=== PATIENT | female | born 1955 | race Caucasian/White ===

== ENCOUNTER 2024-03-19 11:00 | Outpatient (AMB) | payer MEDICARE, SELFPAY ==
--- NOTE | 2024-03-19 11:06 | MHC.OFFVIS ---
Vital Signs 03/19/24 11:07 Height 5 ft 5 in Weight 208 lb BMI 34.6 BP 135/64 Blood Pressure Location Lt brachial Position Sitting Respiration 15 Pulse 81 Pulse Source Pulse Oximeter Pulse Oximetry (%) 97 Oxygen Delivery Method Room Air Intake Visit Reasons: Sacro-iliac pain Allergies naproxen Allergy (Severe, Verified 03/19/24 11:10) Anaphylaxis dimethyl fumarate Adverse Reaction (Severe, Verified 03/19/24 11:10) hives glatiramer (copolymer 1) [From Copaxone] Adverse Reaction (Severe, Verified 03/19/24 11:10) heart palpitations Penicillins Adverse Reaction (Severe, Verified 03/19/24 11:10) Anaphylaxis Sulfa (Sulfonamide Antibiotics) Adverse Reaction (Severe, Verified 03/19/24 11:10) hives, lung pain Medication List - Last Reconciled 03/19/24 by Suzette Webb LPN baclofen 10 mg PO BID calcium carbonate 260 mg PO DAILY cholecalciferol (vitamin D3) 50 mcg PO DAILY furosemide 20 mg PO DAILY lorazepam (Ativan) 1 mg PO DAILY PRN magnesium 250 mg PO DAILY mecobalamin (vitamin B12) 1,000 mcg PO DAILY multivitamin 1 tab PO DAILY pregabalin 50 mg PO TID HPI HPI Sacro-iliac pain: Details: 68-year-old female who presents today to the office for a sacroiliac joint pain. She is presenting with a two-year history of low back pain that is present in the lower back region, bilateral groins, bilateral posterior thighs, and bilateral calves. It is described as an aching sensation in her lower back associated with numbness in pins and needles in her thighs and calves. She also has aching in her feet. The pain is described as 5-7/10 in intensity on average, especially when it is worse with movements or walking. It is less bothersome when she is sitting, although she does have numbness pins and needles when she is seated. She has been unable to sleep normally. She is a side sleeper and sleeps on her left side. She also underwent an MRI of the lumbar spine, which showed trace L4-5 anterolisthesis and an enhancing Schmorl?s node at the inferior L2 endplate. Otherwise, she had mild to moderate degenerate changes throughout the lumbar spine. 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 In November, she had an SI joint injection with Dr. Pollack that provided 100% relief initially then she had a decrease in the level of relief, but she was able to travel to [place] and increase her tolerance for activities. She has a second SI joint steroid injection scheduled in March with Dr. Pollack. She has also tried bracing and exercises, which unfortunately have made her pain worse. She is currently taking gabapentin 3 times a day, Magnesium, Baclofen, and Ativan P.R.N. Review of Systems Const All systems reviewed & are unremarkable except as noted in HPI and below Physical Exam Vital Signs: Last Vital Signs Pulse 81 03/19/24 11:07 Resp 15 03/19/24 11:07 BP 135/64 03/19/24 11:07 Pulse Ox 97 03/19/24 11:07 Oxygen Delivery Method Room Air 03/19/24 11:07 BMI result Body Mass Index 34.6 General: Appears afebrile. Alert and oriented. Mood and affect appropriate. Follows and participates in conversation appropriately. Respiratory effort is unlabored. Able to transition from sit to stand unassisted. Ambulates with bilaterally normal heel strike and toe off. Results Reviewed Results Reviewed: She had an MRI of the lumbar spine, which showed trace L4-5 anterolisthesis and an enhancing Schmorl?s node at the inferior L2 endplate. Otherwise, she had mild to moderate degenerate changes throughout the lumbar spine. 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 02/17/24: MRI of the lumbar spine. Assessment & Plan Assessment & Plan (1) Lumbar radicular pain: Code(s): M54.16 - Radiculopathy, lumbar region Category: Medical (2) Lumbar spondylosis: Code(s): M47.816 - Spondylosis without myelopathy or radiculopathy, lumbar region Category: Medical (3) Low back pain: Code(s): M54.50 - Low back pain, unspecified Category: Medical (4) Sacroiliac dysfunction: Code(s): M53.3 - Sacrococcygeal disorders, not elsewhere classified Category: Medical Plan For her axial low back pain not responsive to sacroiliac joint injection and interventions, we discussed both lumbar facet injections as well as temporary peripheral nerve stimulator as a possible treatment option given her risk profile for osteoporosis and abnormal bone lesions. I think it would be best to minimize cortico-steroid intake. So, we will schedule her for a right temporary L3 medial branch nerve stimulator placement for her axial low back pain, followed by the left side two weeks later. Discussed the risks and benefits of the procedure with the patient in detail. All questions were answered. The patient is on board with the plan. Informed the patient that insurance approval is required. We will file a PA for approval and keep her updated.? For her radicular pain in her legs, if this does not improve with nerve stimulation therapy, we can consider a low-dose epidural steroid injection at the L4-5 level. She has a second SI joint steroid injection scheduled in March with Dr. Pollack.? For her abnormal iliac bone lesions, I recommended that she follow up with either an financial compliance examiner or orthopedic oncologist to get a better sense of the diagnosis and a plan of care for an unspecified T2 hyperintense bone lesion on the recent MRI scan.? I also recommended trying turmeric and dayna supplements, magnesium, zinc, and ALA for their anti-inflammatory properties. She can also try using Tylenol, lidocaine patches, or Salonpas patches.? Justification for interventional therapy: ? Patient with average pain > 6/10 ? Patient has exhausted conservative therapy. ? Patient unable to tolerate physical therapy due to pain. . Patient has a good understanding of their pain condition and has appropriate mental and social support. Scribed for Dr. Milian by Paul Van, medical cash poster, on 03/19/2024. I, Dr. Milian, have personally reviewed and agree with the information entered by the scribe. Coding Level of Care Code New Pt Level 4 (68654) Diagnoses Lumbar radicular pain M54.16 Lumbar spondylosis M47.816 Low back pain M54.50 Sacroiliac dysfunction M53.3
[2024-03-19 11:07] VITALS: BP 135/64; PULSE 81; RESP 15; O2SAT 97; BMI 34.6
== END 2024-03-19 12:04 | disposition home or self-care (01) ==
PROVIDERS: PCP Family Medicine; Visit Provider Internal Medicine
DX: M54.16 Radiculopathy, lumbar region (principal); M47.816 Spondylosis without myelopathy or radiculopathy, lumbar region; M54.50 Low back pain, unspecified; M53.3 Sacrococcygeal disorders, not elsewhere classified
CPT/HCPCS: 99204

== ENCOUNTER → 2024-03-19 11:00 | Outpatient (BNVA) | payer MEDICARE, SELFPAY | PROVIDERS: PCP Family Medicine; Visit Provider Internal Medicine | DX: M54.16 Radiculopathy, lumbar region (principal); M47.816 Spondylosis without myelopathy or radiculopathy, lumbar region; M54.50 Low back pain, unspecified; M53.3 Sacrococcygeal disorders, not elsewhere classified | CPT/HCPCS: 99202 ==

== ENCOUNTER 2024-04-01 06:29 | Outpatient (REF) | payer MEDICARE, SELFPAY ==
--- NOTE | ~2024-04-01 | FL_ITS ---
EXAMINATION: FLUORO GUIDANCE IN TREATMENT ROOM CLINICAL INFORMATION: Spondylosis without myelopathy or radiculopathy, lumbar region. COMPARISON: None available. TECHNIQUE: Fluoroscopy supervised by: Dr. Mark Milian. Fluoroscopy time: 0.1 minutes. Cumulative Dose: 3.59 mGy. DAP: 0.0266 mGy-m2 (milligray-meter squared). Images: 3. FINDINGS: A transforaminal needle and microlead are seen overlying a lower vertebral body on the right. Exact level cannot be ascertained from the included spot films. FL/FL guidance in treatment room IMPRESSION: Fluoroscopy during procedure. Please see procedure report for additional information. Electronically signed by: Frank Dutta MD 05/06/2024 08:02 AM RIKKI
== END 2024-04-01 06:30 | disposition home or self-care (01) ==
LOC: CF 06:29
PROVIDERS: Visit Provider Internal Medicine
DX: M47.816 Spondylosis without myelopathy or radiculopathy, lumbar region (principal); M53.3 Sacrococcygeal disorders, not elsewhere classified
CPT/HCPCS: 64555; C1778; J2003

== ENCOUNTER 2024-04-01 09:40 | Outpatient (AMB) | payer MEDICARE, SELFPAY ==
[2024-04-01 09:56] VITALS: BP 133/59; PULSE 82; O2SAT 96
--- NOTE | 2024-04-01 09:56 | MHC.OFFVIS ---
Vital Signs 04/01/24 09:56 04/01/24 10:53 BP 133/59 L 147/68 H Blood Pressure Location Lt brachial Lt brachial Position Sitting Sitting Pulse 82 73 Pulse Source Pulse Oximeter Pulse Oximeter Pulse Oximetry (%) 96 97 Oxygen Delivery Method Room Air Room Air Intake Visit Reasons: Right L3 Sprint Allergies naproxen Allergy (Severe, Verified 03/19/24 11:10) Anaphylaxis dimethyl fumarate Adverse Reaction (Severe, Verified 03/19/24 11:10) hives glatiramer (copolymer 1) [From Copaxone] Adverse Reaction (Severe, Verified 03/19/24 11:10) heart palpitations Penicillins Adverse Reaction (Severe, Verified 03/19/24 11:10) Anaphylaxis Sulfa (Sulfonamide Antibiotics) Adverse Reaction (Severe, Verified 03/19/24 11:10) hives, lung pain HPI HPI Right L3 Sprint: Details: Patient presents for scheduled procedure. Denies any recent cough, cold, infection, fever or other significant changes in medical history since last office visit. Physical Exam Vital Signs: Last Vital Signs Pulse 73 04/01/24 10:53 BP 147/68 H 04/01/24 10:53 Pulse Ox 97 04/01/24 10:53 Oxygen Delivery Method Room Air 04/01/24 10:53 Office Procedures Details: Lumbar Medial Branch Nerve Stimulation Lead Placement, SPR (Sprint) System, Right L3 ? After the risks, benefits and alternatives were discussed with the patient and informed consent was obtained, patient was placed in the prone position and padded to foster comfort. The skin overlying the lumbosacral spine was prepped and draped in sterile fashion. Fluoroscopy was used to identify the spinous process and lamina in the center of the patient?s region of pain. After identifying and marking the intended target along the course of the medial branch nerve, the skin around the planned entry point and the subcutaneous tissues were injected with lidocaine 1%. An introducer needle and stimulating probe were assembled, inserted and advanced along the intended course of the medial branch nerve as it traverses the lamina medial and inferior to the zygapophyseal joint, taking care to maintain the proper depth of insertion as the introducer is advanced under fluoroscopic guidance. The introducer needle was delivered to a location in proximity to the nerve. Multiple stimulation parameters were used to deliver stimulation to the target medial branch nerve in concert with stimulating at multiple positions around the nerve. Nerve target acquisition was confirmed noting generation of paresthesias in the paravertebral regions corresponding to the level being stimulated. Various electrical parameter combinations were tested, and the lead location was adjusted (physically relocated) until the patient indicated paresthesia/muscle tension overlapping the distribution of the patient?s typical region of pain. The stimulating probe was removed from the introducer and a percutaneous lead was guided through the needle and delivered to a location in similar proximity to the nerve. Final location was verified with electrical stimulation and documented with fluoroscopy. The introducer needle was removed, and the exposed end of the percutaneous lead was attached to an external stimulator unit. Various electrical parameter combinations were again tested until the patient indicated paresthesia or muscle tension overlapping the distribution of the patient?s typical region of pain. After confirming that lead impedance was in the normal range, the external unit was detached, the needle was removed, and the lead was anchored at the skin. The lead was threaded into the connector block and electrical continuity and desired patient response was confirmed. The connector block was attached to the external stimulator unit. The site was covered with a sterile occlusive dressing. The patient was observed for stability of vital signs and comfort. Sprint PNS Device: Sprint PNS Device [id number] Percutaneous Peripheral Neuroelectrode Procedure: 36809 - Percutaneous Peripheral Neuroelectrode Procedure code (CPT) selection complete Office Meds lidocaine HCl 10 mg/mL (1 %) injection solution Performing Provider: Candida Clark APRN, CNP Performing Location: [facility] Administered by: Suzette Webb LPN on 04/01/24 10:38 Dose Route Admin Location Dispensed Lot Number Expiration Date FORMERLY NAMED [facility] Multi Needle Machine Operator 5 mL subcut 5 mL Assessment & Plan Assessment & Plan (1) Sacroiliac dysfunction: Code(s): M53.3 - Sacrococcygeal disorders, not elsewhere classified Category: Medical Plan Patient is status post temporary right L3 medial branch nerve stimulator placement. Patient tolerated procedure well and was discharged home in stable condition with discharge instructions. All questions were answered. We will follow-up via telephone or in clinic to assess response to therapy. A follow-up appointment was made during today's visit. Orders: Orders FL guidance in treatment room Today M47.816 - Spondylosis without myelopathy or radiculopathy, lumbar region AMB Sprint PNS Today M47.816 - Spondylosis without myelopathy or radiculopathy, lumbar region Coding Level of Care Code Procedure Only Diagnoses Sacroiliac dysfunction M53.3 CPT Codes Sprint PNS - Sprint PNS Device: Sprint PNS Device ([id number]) Sprint PNS - SPRINT: 37376 - Percutaneous Peripheral Neuroelectrode ([id number]) Implantable Device Implantable Device Implantable Devices Qty Multi Needle Machine Operator Implant Date Expiration Date Analgesic PENS system 1 [employer] 04/01/24 03/10/25
[2024-04-01 10:53] VITALS: BP 147/68; PULSE 73; O2SAT 97
== END 2024-04-01 11:29 | disposition home or self-care (01) ==
PROVIDERS: PCP Family Medicine; Visit Provider Internal Medicine
DX: M53.3 Sacrococcygeal disorders, not elsewhere classified (principal)
CPT/HCPCS: 64555

== ENCOUNTER → 2024-04-05 12:12 | Outpatient (BNVA) | payer MEDICARE, SELFPAY | PROVIDERS: PCP Family Medicine; Visit Provider Internal Medicine | DX: M47.816 Spondylosis without myelopathy or radiculopathy, lumbar region (principal); M54.50 Low back pain, unspecified; M53.3 Sacrococcygeal disorders, not elsewhere classified | CPT/HCPCS: 99212 ==

== ENCOUNTER 2024-04-05 12:31 | Outpatient (AMB) | payer MEDICARE, SELFPAY ==
--- NOTE | 2024-04-05 12:43 | MHC.OFFVIS ---
Vital Signs 04/05/24 12:48 Height 5 ft 5 in Weight 200 lb BMI 33.3 BP 128/64 Blood Pressure Location Lt brachial Position Sitting Pulse 72 Pulse Source Pulse Oximeter Pulse Oximetry (%) 98 Oxygen Delivery Method Room Air Intake Visit Reasons: s/p right L3 Sprint Intake Note: Pain today 2 Tool Room Lathe Operator Required: No Accompanied by: Self / Same As Patient Allergies naproxen Allergy (Severe, Verified 04/05/24 12:48) Anaphylaxis dimethyl fumarate Adverse Reaction (Severe, Verified 04/05/24 12:48) hives glatiramer (copolymer 1) [From Copaxone] Adverse Reaction (Severe, Verified 04/05/24 12:48) heart palpitations Penicillins Adverse Reaction (Severe, Verified 04/05/24 12:48) Anaphylaxis Sulfa (Sulfonamide Antibiotics) Adverse Reaction (Severe, Verified 04/05/24 12:48) hives, lung pain HPI Comments Details: Patient presents today 1 week status post Right L3 Sprint PNS lead placement on 04/01/[address] Milian. Patient reports ongoing 80% pain relief since procedure at stimulation 56 with notable improvement in her daily activities and functioning, sleep and social activities. She is considering to restart walking club. Denies any recent cough, cold, infection, fever or other significant changes in medical history since last office visit. The dressing was removed today. Lead insertion site look clean, dry, intact, no redness, no swelling, no pathological discharge. Area was cleansed with Chloraprep, applied Bacitracin and covered with Sprint Tegaderm film and gauze dressing. Past Procedures: 04/01/24: Right L3 Sprint PNS-80% ongoing pain relief at 56 PRIOR 03/19/24: 68-year-old female who presents today to the office for a sacroiliac joint pain. She is presenting with a two-year history of low back pain that is present in the lower back region, bilateral groins, bilateral posterior thighs, and bilateral calves. It is described as an aching sensation in her lower back associated with numbness in pins and needles in her thighs and calves. She also has aching in her feet. The pain is described as 5-7/10 in intensity on average, especially when it is worse with movements or walking. It is less bothersome when she is sitting, although she does have numbness pins and needles when she is seated. She has been unable to sleep normally. She is a side sleeper and sleeps on her left side. She also underwent an MRI of the lumbar spine, which showed trace L4-5 anterolisthesis and an enhancing Schmorl?s node at the inferior L2 endplate. Otherwise, she had mild to moderate degenerate changes throughout the lumbar spine. 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 In November, she had an SI joint injection with Dr. Pollack that provided 100% relief initially then she had a decrease in the level of relief, but she was able to travel to [place] and increase her tolerance for activities. She has a second SI joint steroid injection scheduled in March with Dr. Pollack. She has also tried bracing and exercises, which unfortunately have made her pain worse. She is currently taking gabapentin 3 times a day, Magnesium, Baclofen, and Ativan P.R.N. Review of Systems Const All systems reviewed & are unremarkable except as noted in HPI and below Physical Exam Vital Signs: Last Vital Signs Pulse 72 04/05/24 12:48 BP 128/64 04/05/24 12:48 Pulse Ox 98 04/05/24 12:48 Oxygen Delivery Method Room Air 04/05/24 12:48 BMI result Body Mass Index 33.3 General: Appears afebrile. Alert and oriented. Mood and affect appropriate. Follows and participates in conversation appropriately. Respiratory effort is unlabored. Able to transition from sit to stand unassisted. Ambulates with bilaterally normal heel strike and toe off. Lead Insertion Site: Lead insertion site looks clean, dry, intact.? No pathological discharge, no swelling and no erythema.? Lead site dressing was changed today in the clinic. Positive paresthesia at 56 on the right Results Reviewed Results Reviewed: She had an MRI of the lumbar spine, which showed trace L4-5 anterolisthesis and an enhancing Schmorl?s node at the inferior L2 endplate. Otherwise, she had mild to moderate degenerate changes throughout the lumbar spine. 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 02/17/24: MRI of the lumbar spine. Assessment & Plan Assessment & Plan (1) Lumbar spondylosis: Code(s): M47.816 - Spondylosis without myelopathy or radiculopathy, lumbar region Category: Medical (2) Low back pain: Code(s): M54.50 - Low back pain, unspecified Category: Medical (3) Sacroiliac dysfunction: Code(s): M53.3 - Sacrococcygeal disorders, not elsewhere classified Category: Medical Plan Patient is one week status post right L3 Sprint PNS trial for axial low back pain with good results, improved functioning, mobility and sleep. Dressing change was done in the office today. She is scheduled to undergo left side Sprint on 04/15/23. Patient prefers dressing changes in the office as her family friend has significant hand arthritis. She denies any significant radicular pain in her legs today. Patient will notify our office with radicular symptoms, so we can consider a low-dose epidural steroid injection at the L4-5 level. She previously and recently underwent SI joint steroid injections with Dr. Pollack.? All questions and concerns have been answered and the patient agreed with the plan. Follow up after left L3 Sprint/dressing change with Dr. Milian and sooner as needed. Coding Level of Care Code Est Pt Level 3 (80454) Complex EM visit Add On G2211 Diagnoses Lumbar spondylosis M47.816 Low back pain M54.50 Sacroiliac dysfunction M53.3
[2024-04-05 12:48] VITALS: BP 128/64; PULSE 72; O2SAT 98; BMI 33.3
== END 2024-04-05 13:07 | disposition home or self-care (01) ==
LOC: HO.PMC 12:31
PROVIDERS: PCP Family Medicine; Visit Provider Nurse Practitioner Family
DX: M47.816 Spondylosis without myelopathy or radiculopathy, lumbar region (principal); M54.50 Low back pain, unspecified; M53.3 Sacrococcygeal disorders, not elsewhere classified
CPT/HCPCS: 99024

== ENCOUNTER 2024-04-15 06:27 | Outpatient (REF) | payer MEDICARE, SELFPAY ==
--- NOTE | ~2024-04-15 | FL_ITS ---
EXAMINATION: FL GUIDANCE ONLY HISTORY: M47.816 - Spondylosis without myelopathy or radiculopathy, lumbar region COMPARISON: None available. TECHNIQUE: Fluoroscopy time: 0.1 minute. Cumulative Dose: 1.96 mGy. DAP: 0.0192 uGy-m2 (microgray-meter squared). Images: 3. FINDINGS: Spot films of the lower lumbar spine were obtained. FL/FL guidance in treatment room IMPRESSION: Fluoroscopy during procedure. Please see procedure report for additional information. Electronically signed by: Juan Miguel Burciaga MD 04/23/2024 03:14 PM RIKKI
== END 2024-04-15 06:28 | disposition home or self-care (01) ==
LOC: CF 06:27
PROVIDERS: Visit Provider Internal Medicine
DX: M47.816 Spondylosis without myelopathy or radiculopathy, lumbar region (principal); M54.50 Low back pain, unspecified
CPT/HCPCS: 64555; C1778; J2003

== ENCOUNTER 2024-04-15 11:29 | Outpatient (AMB) | payer MEDICARE, SELFPAY ==
--- NOTE | 2024-04-15 11:41 | MHC.OFFVIS ---
Vital Signs 04/15/24 11:58 04/15/24 12:14 BP 128/68 160/62 H Blood Pressure Location Lt brachial Lt brachial Position Sitting Sitting Pulse 72 74 Pulse Source Pulse Oximeter Pulse Oximeter Pulse Oximetry (%) 99 99 Oxygen Delivery Method Room Air Room Air Intake Visit Reasons: Left L3 Sprint Allergies naproxen Allergy (Severe, Verified 04/05/24 12:48) Anaphylaxis dimethyl fumarate Adverse Reaction (Severe, Verified 04/05/24 12:48) hives glatiramer (copolymer 1) [From Copaxone] Adverse Reaction (Severe, Verified 04/05/24 12:48) heart palpitations Penicillins Adverse Reaction (Severe, Verified 04/05/24 12:48) Anaphylaxis Sulfa (Sulfonamide Antibiotics) Adverse Reaction (Severe, Verified 04/05/24 12:48) hives, lung pain HPI HPI Left L3 Sprint: Details: Patient presents for scheduled procedure. Denies any recent cough, cold, infection, fever or other significant changes in medical history since last office visit. Physical Exam Vital Signs: Last Vital Signs Pulse 74 04/15/24 12:14 BP 160/62 H 04/15/24 12:14 Pulse Ox 99 04/15/24 12:14 Oxygen Delivery Method Room Air 04/15/24 12:14 Office Procedures Details: Lumbar Medial Branch Nerve Stimulation Lead Placement, SPR (Sprint) System, Left L3 ? After the risks, benefits and alternatives were discussed with the patient and informed consent was obtained, patient was placed in the prone position and padded to foster comfort. The skin overlying the lumbosacral spine was prepped and draped in sterile fashion. Fluoroscopy was used to identify the spinous process and lamina in the center of the patient?s region of pain. After identifying and marking the intended target along the course of the medial branch nerve, the skin around the planned entry point and the subcutaneous tissues were injected with lidocaine 1%. An introducer needle and stimulating probe were assembled, inserted and advanced along the intended course of the medial branch nerve as it traverses the lamina medial and inferior to the zygapophyseal joint, taking care to maintain the proper depth of insertion as the introducer is advanced under fluoroscopic guidance. The introducer needle was delivered to a location in proximity to the nerve. Multiple stimulation parameters were used to deliver stimulation to the target medial branch nerve in concert with stimulating at multiple positions around the nerve. Nerve target acquisition was confirmed noting generation of paresthesias in the paravertebral regions corresponding to the level being stimulated. Various electrical parameter combinations were tested, and the lead location was adjusted (physically relocated) until the patient indicated paresthesia/muscle tension overlapping the distribution of the patient?s typical region of pain. The stimulating probe was removed from the introducer and a percutaneous lead was guided through the needle and delivered to a location in similar proximity to the nerve. Final location was verified with electrical stimulation and documented with fluoroscopy. The introducer needle was removed, and the exposed end of the percutaneous lead was attached to an external stimulator unit. Various electrical parameter combinations were again tested until the patient indicated paresthesia or muscle tension overlapping the distribution of the patient?s typical region of pain. After confirming that lead impedance was in the normal range, the external unit was detached, the needle was removed, and the lead was anchored at the skin. The lead was threaded into the connector block and electrical continuity and desired patient response was confirmed. The connector block was attached to the external stimulator unit. The site was covered with a sterile occlusive dressing. The patient was observed for stability of vital signs and comfort. Sprint PNS Device: Sprint PNS Device [id number] Percutaneous Peripheral Neuroelectrode Procedure: 86549 - Percutaneous Peripheral Neuroelectrode Procedure code (CPT) selection complete Office Meds lidocaine HCl 10 mg/mL (1 %) injection solution Performing Provider: Candida Clark APRN, CNP Performing Location: [facility] Administered by: Mark Milian MD on 04/15/24 12:27 Dose Route Admin Location Dispensed Lot Number Expiration Date [facility] Software Security Architect 50 mg subcut 5 mL Assessment & Plan Assessment & Plan (1) Low back pain: Code(s): M54.50 - Low back pain, unspecified Category: Medical (2) Lumbar spondylosis: Code(s): M47.816 - Spondylosis without myelopathy or radiculopathy, lumbar region Category: Medical (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 Patient tolerated procedure well and was discharged home in stable condition with discharge instructions. All questions were answered. We will follow-up via telephone or in clinic to assess response to therapy. A follow-up appointment was made during today's visit. Orders: Orders AMB Sprint PNS Today Candida Clark APRN, CONTAINER FINISHING INSPECTOR M47.816 - Spondylosis without myelopathy or radiculopathy, lumbar region FL guidance in treatment room Today Candida Clark APRN, CONTAINER FINISHING INSPECTOR M47.816 - Spondylosis without myelopathy or radiculopathy, lumbar region Medications: New lidocaine HCl 50 mg (5 mL) subcut ONCE 5 mL 0RF Mark Milian MD M47.816 - Spondylosis without myelopathy or radiculopathy, lumbar region Coding Level of Care Code Procedure Only Diagnoses Low back pain M54.50 Lumbar spondylosis M47.816 Dysfunction of the multifidus muscle of lumbar region M62.85 CPT Codes Sprint PNS - Sprint PNS Device: Sprint PNS Device ([id number]) Sprint PNS - SPRINT: 96964 - Percutaneous Peripheral Neuroelectrode ([id number])
[2024-04-15 11:58] VITALS: BP 128/68; PULSE 72; O2SAT 99
[2024-04-15 12:14] VITALS: BP 160/62; PULSE 74; O2SAT 99
== END 2024-04-15 12:21 | disposition home or self-care (01) ==
LOC: HO.PMCPRC 11:29
PROVIDERS: PCP Family Medicine; Visit Provider Internal Medicine
DX: M54.50 Low back pain, unspecified (principal); M47.816 Spondylosis without myelopathy or radiculopathy, lumbar region; M62.85 Dysfunction of the multifidus muscles, lumbar region
CPT/HCPCS: 64555

== ENCOUNTER 2024-04-21 10:19 | Outpatient (AMB) | payer MEDICARE, SELFPAY ==
[2024-04-21 10:23] VITALS: BP 124/70; PULSE 85; RESP 16; O2SAT 96; BMI 33.3
--- NOTE | 2024-04-21 10:23 | MHC.OFFVIS ---
Vital Signs 04/21/24 10:23 Height 5 ft 5 in Weight 200 lb BMI 33.3 BP 124/70 Blood Pressure Location Lt brachial Position Sitting Respiration 16 Pulse 85 Pulse Source Pulse Oximeter Pulse Oximetry (%) 96 Oxygen Delivery Method Room Air Intake Visit Reasons: s/p Left Sprint Allergies naproxen Allergy (Severe, Verified 04/21/24 10:30) Anaphylaxis dimethyl fumarate Adverse Reaction (Severe, Verified 04/21/24 10:30) hives glatiramer (copolymer 1) [From Copaxone] Adverse Reaction (Severe, Verified 04/21/24 10:30) heart palpitations Penicillins Adverse Reaction (Severe, Verified 04/21/24 10:30) Anaphylaxis Sulfa (Sulfonamide Antibiotics) Adverse Reaction (Severe, Verified 04/21/24 10:30) hives, lung pain Medication List - Last Reconciled 04/21/24 by Suzette Webb LPN baclofen 10 mg PO BID calcium carbonate 260 mg PO DAILY cholecalciferol (vitamin D3) 50 mcg PO DAILY furosemide 20 mg PO DAILY lorazepam (Ativan) 1 mg PO DAILY PRN magnesium 250 mg PO DAILY mecobalamin (vitamin B12) 1,000 mcg PO DAILY multivitamin 1 tab PO DAILY pregabalin 50 mg PO TID HPI HPI s/p Left Sprint: Details: Here for follow-up after left L3 medial branch nerve stimulator placement. She reports excellent pain relief on both the left and right side. She is very pleased with the initial results. No questions regarding device operation today. She also reports resolution of numbness in her right leg. 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 We will be followed by them for surveillance going forward. On exam today: Appears afebrile. Alert and oriented. Mood and affect appropriate. Follows and participates in conversation appropriately. Respiratory effort is unlabored. Lead insertion site is clean dry and intact. Physical Exam Vital Signs: Last Vital Signs Pulse 85 04/21/24 10:23 Resp 16 04/21/24 10:23 BP 124/70 04/21/24 10:23 Pulse Ox 96 04/21/24 10:23 Oxygen Delivery Method Room Air 04/21/24 10:23 BMI result Body Mass Index 33.3 Assessment & Plan Assessment & Plan (1) Dysfunction of the multifidus muscle of lumbar region: Code(s): M62.85 - Dysfunction of the multifidus muscles, lumbar region Category: Medical (2) Low back pain: Code(s): M54.50 - Low back pain, unspecified Category: Medical (3) Lumbar spondylosis: Code(s): M47.816 - Spondylosis without myelopathy or radiculopathy, lumbar region Category: Medical Plan Doing well with temporary medial branch nerve stimulation so far. Follow-up in 5 weeks for right side removal. Coding Level of Care Code Est Pt Level 3 (53057) Diagnoses Dysfunction of the multifidus muscle of lumbar region M62.85 Low back pain M54.50 Lumbar spondylosis M47.816
== END 2024-04-21 10:43 | disposition home or self-care (01) ==
PROVIDERS: PCP Family Medicine; Visit Provider Internal Medicine
DX: M62.85 Dysfunction of the multifidus muscles, lumbar region (principal); M54.50 Low back pain, unspecified; M47.816 Spondylosis without myelopathy or radiculopathy, lumbar region
CPT/HCPCS: 99024

== ENCOUNTER → 2024-04-21 10:19 | Outpatient (BNVA) | payer MEDICARE, SELFPAY | PROVIDERS: PCP Family Medicine; Visit Provider Internal Medicine | DX: M62.85 Dysfunction of the multifidus muscles, lumbar region (principal); M54.50 Low back pain, unspecified; M47.816 Spondylosis without myelopathy or radiculopathy, lumbar region; Z96.82 Presence of neurostimulator | CPT/HCPCS: 99212 ==

== ENCOUNTER → 2024-04-30 10:15 | Outpatient (BNVA) | payer MEDICARE, SELFPAY | PROVIDERS: PCP Family Medicine; Visit Provider Internal Medicine ==

== ENCOUNTER → 2024-05-19 09:43 | Outpatient (BNVA) | payer MEDICARE, SELFPAY | PROVIDERS: PCP Family Medicine; Visit Provider Internal Medicine ==

== ENCOUNTER → 2024-05-26 09:04 | Outpatient (BNVA) | payer MEDICARE, SELFPAY | PROVIDERS: PCP Family Medicine; Visit Provider Internal Medicine ==

== ENCOUNTER 2024-06-09 09:00 | Outpatient (AMB) | payer MEDICARE, SELFPAY ==
--- NOTE | 2024-06-09 09:08 | A.OFFVIS_ITS ---
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 Allergies naproxen Allergy (Severe, Verified 06/09/24 09:11) Anaphylaxis dimethyl fumarate Adverse Reaction (Severe, Verified 06/09/24 09:11) hives glatiramer (copolymer 1) [From Copaxone] Adverse Reaction (Severe, Verified 06/09/24 09:11) heart palpitations Penicillins Adverse Reaction (Severe, Verified 06/09/24 09:11) Anaphylaxis Sulfa (Sulfonamide Antibiotics) Adverse Reaction (Severe, Verified 06/09/24 09:11) hives, lung pain Medication List - Last Reconciled 06/09/24 by Suzette Webb LPN baclofen 10 mg PO BID calcium carbonate 260 mg PO DAILY cholecalciferol (vitamin D3) 50 mcg PO DAILY furosemide 20 mg PO DAILY lorazepam (Ativan) 1 mg PO DAILY PRN magnesium 250 mg PO DAILY mecobalamin (vitamin B12) 1,000 mcg PO DAILY multivitamin 1 tab PO DAILY pregabalin 50 mg PO TID triamcinolone acetonide 0.1% topical HPI HPI Left Sprint removal: Details: History of Present Illness The patient is a 68-year-old female presenting with chronic back pain and associated numbness in her left leg. In an effort to manage her back pain, the patient underwent the implantation of a temporary PNS device, which has shown s ome improvement in her symptoms. Despite this intervention, the patient still experiences persistent numbness in her left leg, which was anticipated. Recently, activities involving prolonged standing resulted in mechanical strain and discomfort, signaling muscle fatigue rather than device inefficacy. The patient reports improvement in day-to-day function but has not resumed certain activities, maintaining a careful approach during her recovery and adjustment period. Past treatments included steroid injections, which yielded short-term benefits, leading to the exploration of novel neuromodulation therapies. The patient is observing the ongoing effects of the device, with plans to resume regular activities gradually to assess full benefit. The persistence of back pain and the patient's response to therapy are closely monitored in coordination with ongoing pain management strategies and input from other involved healthcare professionals. Pain Description - Onset and Timing: Chronic, persistent nature, exacerbated by prolonged standing. - Quality and Character: Numbness in the left leg, occasional muscle strain, overall improvement with device use. - Primary Location: Back - Radiation: Left leg - Exacerbating factors: Prolonged standing, specific physical activities. - Relieving factors: Use of neuromodulation device - Interference: Limited resumption of regular physical activities such as swimming. Physical Exam - Appears afebrile. - Alert and oriented. - Mood and affect appropriate. - Follows and participates in conversation appropriately. - Respiratory effort is unlabored. - Able to transition from sit to stand unassisted. - Ambulates with bilaterally normal heel strike and toe off. - Able to stand and walk on toes and heels. - Leads removed with tip intact. Pain Management - Affect: The patient appears positive and thrilled about the improvements. - Analgesia: No new pain medication; improvement noted with neuromodulation device. - Adverse Effects: None reported from current treatment. - Activities of Daily Living: Reported improvements in daily living, future activity adjustment planned. - Aberrant Drug-Related Behaviors: None reported. Physical Exam Vital Signs: Last Vital Signs Pulse 78 06/09/24 09:10 Resp 16 06/09/24 09:10 BP 131/62 06/09/24 09:10 Pulse Ox 98 06/09/24 09:10 Oxygen Delivery Method Room Air 06/09/24 09:10 Assessment & Plan Assessment & Plan (1) Dysfunction of the multifidus muscle of lumbar region: Code(s): M62.85 - Dysfunction of the multifidus muscles, lumbar region Category: Medical (2) Low back pain: Code(s): M54.50 - Low back pain, unspecified Category: Medical (3) Lumbar spondylosis: Code(s): M47.816 - Spondylosis without myelopathy or radiculopathy, lumbar region Category: Medical Plan Plan Given the patient's positive response to the sprint device for medial branch PNS, it is recommended to proceed with observation over the upcoming months, especially as the patient gradually resumes regular activities. Should symptoms remain a concern or worsen, we may consider radiofrequency ablation as a feasible alternative for symptom management. Continuous dialogue with patient and reporting to other care providers, like the primary care physician, is essential to ensure comprehensive care. Physical therapy was suggested as a non- invasive supplement, and more invasive interventions are reserved as last-resort options dependent on the progression of current treatment efficacy. Patient was informed and verbally consented to the use of an ambient scribe for clinic note documentation during this visit. Discussion Notes I discussed the options and outlined that the sprint device shows promise in significantly improving the patient's quality of life. I explained alternative options such as radiofrequency ablation, noting its potential as a backup procedure if current improvements plateau or regress. I emphasized monitoring symptoms as the patient reintroduces more physical activities. The risks and benefits of invasive procedures were presented, though they are further from consideration at this time. Together with the patient, we agreed on maintaining this course while evaluating future options if necessary, intending another consultation should symptoms alter to consider additional procedures. Patient Instructions - Monitor symptoms as you gradually resume daily activities. - Continue using your neuromodulation device as instructed. - Attend scheduled follow-ups to assess the full benefit of your current treatment. - Report any significant changes or worsening of symptoms. - Engage in recommended physical therapy if considered beneficial. - Discuss any concerns or questions with your primary care physician. Coding Level of Care Code Est Pt Level 3 (46442) Diagnoses Dysfunction of the multifidus muscle of lumbar region M62.85 Low back pain M54.50 Lumbar spondylosis M47.816
[2024-06-09 09:10] VITALS: BP 131/62; PULSE 78; RESP 16; O2SAT 98
== END 2024-06-09 09:46 | disposition home or self-care (01) ==
PROVIDERS: PCP Family Medicine; Visit Provider Internal Medicine
DX: M62.85 Dysfunction of the multifidus muscles, lumbar region (principal); M54.50 Low back pain, unspecified; M47.816 Spondylosis without myelopathy or radiculopathy, lumbar region
CPT/HCPCS: 99213

== ENCOUNTER → 2024-06-09 09:00 | Outpatient (BNVA) | payer MEDICARE, SELFPAY | PROVIDERS: PCP Family Medicine; Visit Provider Internal Medicine | DX: M62.85 Dysfunction of the multifidus muscles, lumbar region (principal); M47.816 Spondylosis without myelopathy or radiculopathy, lumbar region | CPT/HCPCS: 99212 ==